=== PATIENT | male | born 1990 | race African-American/Black ===

== ENCOUNTER 2018-12-27 23:39 | Observation (INO) ==
[2018-12-28] MEDS ORDERED: Piperacillin/Tazobactam 3.375 GM in Water for inj. (sterile) 20 ML IVP ONE (00:11)
[2018-12-28] MEDS ORDERED: Ketorolac 15 MG/ML VIAL IVP ONE (00:18)
[2018-12-28] MEDS ORDERED: 0.9 % Sodium Chloride 1,000 ML IVC ONE (00:19)
[2018-12-28] MEDS ORDERED: Tdap (Boostrix) Vaccine 0.5 ML SYRINGE IM ONE (00:33)
[2018-12-28 00:41] LABS: Basophils % 0.5 %; Eosinophils # 0.2 K/mcL (0.0-0.6); Hematocrit 41.9 % (37.5-50.1); Hemoglobin 14.3 g/dL (12.9-16.9); Immature Granulocytes % 0.3 % (0-4); Immature Platelets 1.4 % (1.1-6.1); Lymphocytes % 24.6 %; Mean Corpuscular HGB Conc 34.1 g/dL (31.6-35.5); Mean Corpuscular Volume 90.9 fL (83.0-100.0); Mean Platelet Volume 8.9 fL (9.4-12.4); Monocytes % 12.5 %; Neutrophils # 4.8 K/mcL (1.6-8.9); Platelet Count 320 K/mcL (140-400); Red Blood Count 4.61 M/mcL (4.19-5.50); Red Cell Distribution Width 11.8 % (11.5-14.5); Segmented Neutrophils % 60.1 %
[2018-12-28 00:57] LABS: BUN/Creatinine Ratio 14 (6-26); Blood Urea Nitrogen 11 mg/dL (6-20); C-Reactive Protein 53 mg/L (Less than 10); Calcium 9.3 mg/dL (8.6-10.3); Carbon Dioxide 26 mEq/L (23-29); Chloride 101 mEq/L (98-107); Glucose 89 mg/dL (70-105); Osmolality,Calculated 277 (280-300); Potassium 4.6 mEq/L (3.5-5.1); Sodium 134 mEq/L (136-145); eGFR For African Americans > 60 (> 60); eGFR For Non-African Americans > 60 (> 60)
[2018-12-28] MEDS ORDERED: Naloxone 0.4 MG/ML INJ IVP PRN (06:01)
[2018-12-28] MEDS ORDERED: Aspirin 81 MG TAB.CHEW PO ONE (06:09)
[2018-12-28] MEDS ORDERED: Ringers Solution, Lactated 1,000 ML IVC SCH (06:15)
[2018-12-28] MEDS ORDERED: *HR* Enoxaparin 40 MG/0.4 ML SYRINGE SQ SCH (07:00)
[2018-12-28 07:07] LABS: Basophils % 0.4 %; Eosinophils # 0.2 K/mcL (0.0-0.6); Eosinophils % 2.5 %; Hemoglobin 13.3 g/dL (12.9-16.9); Immature Granulocytes % 0.3 % (0-4); Lymphocytes # 2.6 K/mcL (0.6-4.6); Mean Corpuscular HGB Conc 35.9 g/dL (31.6-35.5); Mean Corpuscular Hemoglobin 31.3 pg (28.0-33.3); Mean Corpuscular Volume 87.1 fL (83.0-100.0); Mean Platelet Volume 8.9 fL (9.4-12.4); Monocytes # 1.2 K/mcL (0.0-1.3); Monocytes % 13.4 %; Neutrophils # 4.9 K/mcL (1.6-8.9); Platelet Count 338 K/mcL (140-400); Red Blood Count 4.25 M/mcL (4.19-5.50); Red Cell Distribution Width 11.9 % (11.5-14.5); Segmented Neutrophils % 54.4 %
[2018-12-28 07:24] LABS: INR 1.2; Prothrombin Time 13.1 Seconds (9.4-12.1)
[2018-12-28 07:31] LABS: Alanine Aminotransferase 54 Units/L (7-52); Albumin 3.4 g/dL (3.5-5.7); Albumin/Globulin Ratio 0.9 (1.1-2.2); Alkaline Phosphatase 44 Units/L (34-104); Aspartate Amino Transferase 17 Units/L (13-39); BUN/Creatinine Ratio 13 (6-26); Bilirubin,Total 0.5 mg/dL (0.3-1.0); Blood Urea Nitrogen 11 mg/dL (6-20); Calcium 8.9 mg/dL (8.6-10.3); Carbon Dioxide 25 mEq/L (23-29); Chloride 105 mEq/L (98-107); Globulin 3.6 g/dL (2.4-3.5); Glucose 102 mg/dL (70-105); Osmolality,Calculated 284 (280-300); Phosphorous 3.3 mg/dL (2.7-4.5); Sodium 137 mEq/L (136-145); eGFR For African Americans > 60 (> 60); eGFR For Non-African Americans > 60 (> 60)
[2018-12-28] MEDS ORDERED: Piperacillin/Tazobactam 3.375 GM in Water for inj. (sterile) 20 ML IVP SCH (08:00)
[2018-12-28] MEDS ORDERED: Nicotine 14 MG PATCH.TD24 TD SCH (09:00)
[2018-12-28] MEDS ORDERED: BuPROPion SR (12 HR) 150 MG TABLET PO SCH (09:00)
[2018-12-28] MEDS ORDERED: 0.9 % Sodium Chloride Mini Bag 100 ML ONE (10:31)
[2018-12-28 16:50] LABS: Bilirubin,Urine Negative (Negative); Blood,Urine Negative (Negative); Clarity,Urine Clear (Clear); Color,Urine Yellow (Yellow); Glucose,Urine (UA) Normal (Normal); Ketones,Urine Negative (Negative); Leukocyte Esterase,Urine Small (Negative); Nitrite,Urine Negative (Negative); PH,Urine 7.5 pH Units (5.0-8.0); Protein,Urine Negative (Neg-Trace); Specific Gravity,Urine 1.012 (1.010-1.025); Urobilinogen,Urine Normal (Normal)
[2018-12-28 16:52] LABS: Bacteria,Urine None Seen per hpf (None-Few); Hyaline Casts,Urine None Seen per lpf (None-Few); Squamous Epithelial Cell,Urine Many per lpf (None-Few); WBC,Urine 15-30 per hpf (0-3)
[2018-12-28 17:00] LABS: Amphetamine Screen,Urine Negative ng/mL (Cutoff=1000); Barbiturate Screen,Urine Negative ng/mL (Cutoff=200); Benzodiazepines Screen,Urine Negative ng/mL (Cutoff=200); Cannabinoid Screen,Urine Negative ng/mL (Cutoff = 50); Cocaine Screen,Urine Negative ng/mL (Cutoff= 300); Opiate Screen,Urine Negative ng/mL (Cutoff=300); Phencyclidine Screen,Urine Negative ng/mL (Cutoff=25)
[2018-12-28 19:00] VITALS: BP 151/88
[2018-12-28] MEDS ORDERED: Aminoglycoside Consult 1 EACH MC ONE (20:03)
== END 2018-12-28 20:04 | disposition left against medical advice (07) ==
LOC: EMEROOARM 23:39 → 3BNU 23:39
PROVIDERS: ADMIT Family Medicine; ATTEND Family Medicine

== ENCOUNTER 2020-04-23 23:18 | Inpatient (IN) ==
[2020-04-23] MEDS ORDERED: 0.9 % Sodium Chloride 1,000 ML IVC ONE ×2 (23:28→23:48)
[2020-04-23 23:55] LABS: Basophils # 0.1 K/mcL (0.0-0.2); Basophils % 0.3 %; Eosinophils % 0.1 %; Hematocrit 31.3 % (37.5-50.1); Hemoglobin 10.8 g/dL (12.9-16.9); Immature Granulocytes % 1.9 % (0-4); Lymphocytes % 17.3 %; Mean Corpuscular HGB Conc 34.5 g/dL (31.6-35.5); Mean Corpuscular Hemoglobin 30.9 pg (28.0-33.3); Mean Corpuscular Volume 89.4 fL (83.0-100.0); Mean Platelet Volume 9.8 fL (9.4-12.4); Monocytes # 2.4 K/mcL (0.0-1.3); Monocytes % 10.4 %; Neutrophils # 16.2 K/mcL (1.6-8.9); Platelet Count 307 K/mcL (140-400); White Blood Count 23.2 K/mcL (4.3-11.1)
[2020-04-24 00:15] LABS: BUN/Creatinine Ratio 10 (6-26); Blood Urea Nitrogen 12 mg/dL (6-20); Calcium 8.1 mg/dL (8.6-10.3); Carbon Dioxide 24 mEq/L (23-29); Chloride 96 mEq/L (98-107); Glucose 104 mg/dL (70-105); Osmolality,Calculated 266 (280-300); Potassium 3.7 mEq/L (3.5-5.1); Sodium 128 mEq/L (136-145); eGFR For African Americans > 60 (> 60); eGFR For Non-African Americans > 60 (> 60)
[2020-04-24 00:23] LABS: Troponin I 0.04 ng/mL (< 0.04)
[2020-04-24] MEDS ORDERED: Isovue-370 500 ML BOTTLE IVP ONE (00:44)
[2020-04-24 01:38] LABS: Amphetamine Screen,Urine Positive ng/mL (Cutoff=1000); Barbiturate Screen,Urine Negative ng/mL (Cutoff=200); Benzodiazepines Screen,Urine Negative ng/mL (Cutoff=200); Cannabinoid Screen,Urine Negative ng/mL (Cutoff = 50); Cocaine Screen,Urine Negative ng/mL (Cutoff= 300); Opiate Screen,Urine Negative ng/mL (Cutoff=300); Phencyclidine Screen,Urine Negative ng/mL (Cutoff=25)
[2020-04-24] MEDS ORDERED: Piperacillin/Tazobactam 3.375 GM in 0.9 % Sodium Chloride Mini Bag 100 ML IVPB ONE (01:40)
[2020-04-24] MEDS ORDERED: Acetaminophen 325 MG TABLET PO PRN (02:07)
[2020-04-24] MEDS ORDERED: Ondansetron ODT 4 MG TAB.RAPDIS SL PRN ×2 (02:07→15:17)
[2020-04-24] MEDS ORDERED: Naloxone 0.4 MG/ML INJ IVP PRN ×2 (02:07→15:17)
[2020-04-24] MEDS ORDERED: Perflutren Lipid Microsphere 1.3 ML in 0.9 % Sodium Chloride 8.7 ML IVP PRN (02:35)
[2020-04-24] MEDS ORDERED: Vancomycin 1,750 MG in 0.9 % Sodium Chloride 250 ML IVPB SCH (03:00)
[2020-04-24 04:35] LABS: Basophils # 0.1 K/mcL (0.0-0.2); Basophils % 0.4 %; Eosinophils # 0.1 K/mcL (0.0-0.6); Eosinophils % 0.2 %; Hematocrit 29.7 % (37.5-50.1); Hemoglobin 10.1 g/dL (12.9-16.9); Immature Granulocytes % 1.5 % (0-4); Lymphocytes # 4.2 K/mcL (0.6-4.6); Lymphocytes % 19.5 %; Mean Corpuscular Hemoglobin 31.1 pg (28.0-33.3); Mean Corpuscular Volume 91.4 fL (83.0-100.0); Mean Platelet Volume 9.6 fL (9.4-12.4); Monocytes # 2.2 K/mcL (0.0-1.3); Monocytes % 10.2 %; Neutrophils # 14.5 K/mcL (1.6-8.9); Platelet Count 266 K/mcL (140-400); Red Blood Count 3.25 M/mcL (4.19-5.50); Segmented Neutrophils % 68.2 %; White Blood Count 21.3 K/mcL (4.3-11.1)
[2020-04-24] MEDS: 0.9 % Sodium Chloride 1,000 ML IVC SCH ×2 (04:36→09:53)
[2020-04-24 04:46] LABS: INR 1.6; Prothrombin Time 18.4 Seconds (9.4-12.1)
[2020-04-24 05:01] LABS: % Iron Saturation 11 % (20-55); Alanine Aminotransferase 31 Units/L (7-52); Albumin 2.8 g/dL (3.5-5.7); Albumin/Globulin Ratio 0.8 (1.1-2.2); Alkaline Phosphatase 41 Units/L (34-104); Aspartate Amino Transferase 36 Units/L (13-39); BUN/Creatinine Ratio 11 (6-26); Bilirubin,Total 1.5 mg/dL (0.3-1.0); Blood Urea Nitrogen 10 mg/dL (6-20); C-Reactive Protein 120 mg/L (Less than 10); Calcium 7.8 mg/dL (8.6-10.3); Carbon Dioxide 22 mEq/L (23-29); Chloride 103 mEq/L (98-107); Globulin 3.6 g/dL (2.4-3.5); Glucose 89 mg/dL (70-105); Iron 19 mcg/dL (65-175); Osmolality,Calculated 275 (280-300); Phosphorous 3.5 mg/dL (2.7-4.5); Potassium 3.8 mEq/L (3.5-5.1); Sodium 133 mEq/L (136-145); Total Protein 6.4 g/dL (6.4-8.9); Transferrin 119 mg/dL (203-362); Troponin I 0.03 ng/mL (< 0.04); eGFR For African Americans > 60 (> 60); eGFR For Non-African Americans > 60 (> 60)
[2020-04-24 05:13] LABS: Ferritin 510 ng/mL (20-250)
[2020-04-24 05:16] LABS: Folate 12.7 ng/mL (3.0-16.0)
[2020-04-24] MEDS ORDERED: *HR* Enoxaparin 40 MG/0.4 ML SYRINGE SQ SCH (06:00)
[2020-04-24] MEDS ORDERED: Piperacillin/Tazobactam 3.375 GM in 0.9 % Sodium Chloride Mini Bag 100 ML IVPB SCH (08:00)
[2020-04-24] MEDS ORDERED: Vancomycin 1,250 MG/262.5 ML IV.SOLN IVPB SCH (12:00)
[2020-04-24] MEDS ORDERED: *HR* Rocuronium Bromide 50 MG/5 ML VIAL ONE (12:28)
[2020-04-24] MEDS ORDERED: *HR* Propofol 200 MG/20 ML VIAL IVP ONE (12:28)
[2020-04-24] MEDS ORDERED: *HR* FentaNYL (PF) 100 MCG/2 ML VIAL ONE ×2 (12:28→13:24)
[2020-04-24] MEDS ORDERED: Lidocaine -MPF 4% 5 ML AMPUL ONE (12:28)
[2020-04-24] MEDS ORDERED: *HR* Succinylcholine 200 MG/10 ML VIAL IVP ONE (12:28)
[2020-04-24] MEDS ORDERED: Ondansetron 4 MG/2 ML VIAL ONE (12:28)
[2020-04-24] MEDS ORDERED: *HR* Midazolam HCl 2 MG/2 ML VIAL ONE (12:28)
[2020-04-24] MEDS ORDERED: Lidocaine -MPF 2% 2 ML VIAL ONE (12:28)
[2020-04-24] MEDS ORDERED: *HR* HYDROmorphone PF 0.5 MG/0.5 ML SYRINGE IVP PRN (12:39)
[2020-04-24] MEDS ORDERED: *HR* OxyCODONE Immed Rel 5 MG TABLET PO PRN (12:39)
[2020-04-24] MEDS ORDERED: Ondansetron 4 MG/2 ML VIAL IVP PRN (12:39)
[2020-04-24] MEDS ORDERED: Promethazine 6.25 MG in Water for inj. (sterile) 20 ML IVPB PRN (12:39)
[2020-04-24] MEDS ORDERED: *HR* HYDROMORPHONE 2 MG/ML VIAL ONE (13:06)
[2020-04-24] MEDS ORDERED: Albuterol 2.5 MG/3 ML NEBULIZER IH ONE (14:14)
[2020-04-24] MEDS ORDERED: Albuterol 2.5 MG/3 ML NEBULIZER ONE (14:14)
[2020-04-24] MEDS: Vancomycin 1,250 MG/262.5 ML IV.SOLN IVPB SCH (15:57)
[2020-04-24] MEDS: Acetaminophen 325 MG TABLET PO PRN (16:06)
[2020-04-24] MEDS: Piperacillin/Tazobactam 3.375 GM in 0.9 % Sodium Chloride Mini Bag 100 ML IVPB SCH (18:04)
[2020-04-25] MEDS ORDERED: Vancomycin 1,250 MG/262.5 ML IV.SOLN IVPB SCH
[2020-04-25] MEDS: Acetaminophen 325 MG TABLET PO PRN ×2 (02:10→10:57)
[2020-04-25] MEDS: Piperacillin/Tazobactam 3.375 GM in 0.9 % Sodium Chloride Mini Bag 100 ML IVPB SCH ×2 (02:11→10:51)
[2020-04-25 04:11] LABS: BUN/Creatinine Ratio 10 (6-26); Blood Urea Nitrogen 8 mg/dL (6-20); Calcium 8.1 mg/dL (8.6-10.3); Carbon Dioxide 26 mEq/L (23-29); Chloride 106 mEq/L (98-107); Glucose 109 mg/dL (70-105); Osmolality,Calculated 281 (280-300); Potassium 4.3 mEq/L (3.5-5.1); Sodium 136 mEq/L (136-145); eGFR For African Americans > 60 (> 60); eGFR For Non-African Americans > 60 (> 60)
[2020-04-25 04:14] LABS: Basophils # 0.1 K/mcL (0.0-0.2); Basophils % 0.5 %; Eosinophils # 0.3 K/mcL (0.0-0.6); Eosinophils % 1.8 %; Hematocrit 30.5 % (37.5-50.1); Immature Granulocytes % 2.5 % (0-4); Lymphocytes # 3.6 K/mcL (0.6-4.6); Lymphocytes % 20.9 %; Mean Corpuscular HGB Conc 32.8 g/dL (31.6-35.5); Mean Corpuscular Hemoglobin 30.3 pg (28.0-33.3); Mean Corpuscular Volume 92.4 fL (83.0-100.0); Mean Platelet Volume 9.9 fL (9.4-12.4); Monocytes # 1.8 K/mcL (0.0-1.3); Monocytes % 10.3 %; Neutrophils # 10.9 K/mcL (1.6-8.9); Nucleated Red Blood Cells 0.1 /100 WBC (0); Platelet Count 346 K/mcL (140-400); Red Cell Distribution Width 12.4 % (11.5-14.5)
[2020-04-25] MEDS: Vancomycin 1,250 MG/262.5 ML IV.SOLN IVPB SCH (04:26)
[2020-04-25] MEDS ORDERED: *HR* Enoxaparin 40 MG/0.4 ML SYRINGE SQ SCH (06:00)
[2020-04-25 11:48] LABS: Creatine Kinase 614 Units/L (30-223)
[2020-04-25] MEDS: *HR* Enoxaparin 100 MG/ML SYRINGE SQ SCH ×2 (12:50→17:42)
[2020-04-25] MEDS: Penicillin G Potassium 4,000,000 UNIT in 0.9 % Sodium Chloride 100 ML IVPB SCH ×3 (12:50→19:29)
[2020-04-25] MEDS: Clindamycin 600 MG/50 ML 600 MG/50 ML IV.SOLN IVPB SCH ×2 (15:16→23:30)
[2020-04-26] MEDS: Penicillin G Potassium 4,000,000 UNIT in 0.9 % Sodium Chloride 100 ML IVPB SCH ×4 (00:31→12:23)
[2020-04-26] MEDS: Acetaminophen 325 MG TABLET PO PRN ×2 (00:34→12:24)
[2020-04-26 03:49] LABS: Basophils # 0.1 K/mcL (0.0-0.2); Basophils % 0.7 %; Eosinophils # 0.3 K/mcL (0.0-0.6); Eosinophils % 1.9 %; Hematocrit 33.4 % (37.5-50.1); Hemoglobin 11.2 g/dL (12.9-16.9); Immature Granulocytes % 3.3 % (0-4); Lymphocytes # 4.5 K/mcL (0.6-4.6); Mean Corpuscular HGB Conc 33.5 g/dL (31.6-35.5); Mean Corpuscular Volume 92.5 fL (83.0-100.0); Monocytes # 1.3 K/mcL (0.0-1.3); Monocytes % 8.2 %; Neutrophils # 9.2 K/mcL (1.6-8.9); Nucleated Red Blood Cells 0.1 /100 WBC (0); Platelet Count 395 K/mcL (140-400); Red Blood Count 3.61 M/mcL (4.19-5.50); Red Cell Distribution Width 12.2 % (11.5-14.5); Segmented Neutrophils % 57.9 %
[2020-04-26 04:01] LABS: Blood Urea Nitrogen 5 mg/dL (6-20); Calcium 8.7 mg/dL (8.6-10.3); Carbon Dioxide 24 mEq/L (23-29); Chloride 106 mEq/L (98-107); Glucose 84 mg/dL (70-105); Osmolality,Calculated 278 (280-300); Potassium 4.5 mEq/L (3.5-5.1); Sodium 136 mEq/L (136-145)
[2020-04-26 05:14] LABS: BUN/Creatinine Ratio 7 (6-26); eGFR For African Americans > 60 (> 60); eGFR For Non-African Americans > 60 (> 60)
[2020-04-26] MEDS: *HR* Enoxaparin 100 MG/ML SYRINGE SQ SCH (05:29)
[2020-04-26] MEDS: Clindamycin 600 MG/50 ML 600 MG/50 ML IV.SOLN IVPB SCH (08:53)
[2020-04-26 11:04] VITALS: BP 150/91
== END 2020-04-26 16:28 | disposition home or self-care (01) | DRG 710 ==
LOC: 3ANU 23:18 → EMEROOARM 23:18 → SUATTDRO 04-24 02:26 → 3ANU 04-24 03:22 → SUATTDRO 04-25 17:17
PROVIDERS: ADMIT Internal Medicine; ATTEND Internal Medicine